=== PATIENT | female | born 2000 | race Two or more races ===

== ENCOUNTER 2024-11-17 03:39 | Emergency (ER) | payer OTHER, SELFPAY ==
[2024-11-17 03:44] VITALS: BP 137/84; PULSE 100; TEMP 36.7; O2SAT 99; BMI 36.3
--- NOTE | 2024-11-17 04:01 | ED_ITS ---
HPI HPI - General Adult General Chief complaint: GI Bleed Stated complaint: BLOOD IN STOOL Time Seen by Provider: 11/17/24 03:54 Source: patient Mode of arrival: walk-in Limitations: no limitations History of Present Illness HPI narrative: 24-year-old female presents because she saw some blood in her stool about 20 minutes ago. She has some discomfort in her rectal area. She has not been constipated and has no abdominal pain. No vomiting or fever. She has a history of IBS according to the patient. Related Data Home Medications ?Medication ?Instructions ?Recorded ?Confirmed dicyclomine 20 mg tablet 20 mg PO QID 11/17/24 11/17/24 norelgestromin 150 mcg-e.estradiol 1 patch transdermal QWEEK 11/17/24 11/17/24 35 mcg/24 hr weekly transderm patch Previous Rx's ?Medication ?Instructions ?Recorded amoxicillin 875 mg-potassium 1 tab PO BID #14 tabs 11/17/24 clavulanate 125 mg tablet Allergies Allergy/AdvReac Type Severity Reaction Status Date / Time No Known Drug Allergies Allergy Verified 11/17/24 03:50 Opioid HPI Opioid Management Most Recent Opioid Data: No Data to Display Review of Systems ROS Narrative A ten point review of systems is negative except as noted above. PFSH PFSH Social History Little interest or pleasure in doing things: not at all Feeling down, depressed, or hopeless: not at all Exam Narrative Exam Narrative: Nurses note and vital signs reviewed and patient is not hypoxic. General: The patient appears in no apparent distress. Patient is resting on cart. Skin: Warm, dry, no pallor noted. There is no rash noted. Head: Normocephalic, atraumatic Eye: Normal conjunctiva, no drainage Ears, Nose, Mouth, and Throat: oral mucosa is moist. Nares patent. Cardiovascular: Regular Rate and Rhythm Respiratory: Patient is in no distress, no accessory muscle use, lungs are clear to auscultation, no wheezing, rales or rhonchi Back: non-tender GI: Abdomen is soft and nontender. Perianal examination shows no external hemorrhoids. There is some brown stool present. At the 6 o'clock position she has a tender area that is not raised or open and there is no drainage including with palpation. Musculoskeletal: The patient has no evidence of calf tenderness, no pitting edema, symmetrical pulses noted bilaterally Neurological: A&O, normal speech Psychiatric: Cooperative Constitutional Vital Signs, click to edit/add: Last Vital Signs Temp 98.0 F 11/17/24 03:44 Pulse 100 H 11/17/24 03:44 Resp 18 11/17/24 03:44 BP 137/84 11/17/24 03:44 Pulse Ox 99 11/17/24 03:44 O2 Del Method Room Air 11/17/24 03:44 Course Vital Signs Vital signs: Vital Signs Temperature 98.0 F 11/17/24 03:44 Pulse Rate 100 H 11/17/24 03:44 Respiratory Rate 18 11/17/24 03:44 Blood Pressure 137/84 11/17/24 03:44 Pulse Oximetry 99 11/17/24 03:44 Oxygen Delivery Method Room Air 11/17/24 03:44 Temperature 98.0 F 11/17/24 03:44 Pulse Rate 100 H 11/17/24 03:44 Respiratory Rate 18 11/17/24 03:44 Blood Pressure 137/84 11/17/24 03:44 Pulse Oximetry 99 11/17/24 03:44 Oxygen Delivery Method Room Air 11/17/24 03:44 Medical Decision Making MDM Narrative Medical decision making narrative: Blood work including hemoglobin and white blood cell count are normal. She has a history of IBS and has a tender area approximately 2 cm from her anus at the 6 o'clock position. Cause is uncertain but this does not seem to be a fistula. She is being prescribed Augmentin and was given her first dose here and she will follow-up with her physicist nuclear. Treatment diagnosis and follow-up were discussed with the patient. Differential Diagnosis Differential Diagnosis: External hemorrhoid, internal hemorrhoid Lab Data Lab results reviewed: Yes I reviewed the patient's lab results Labs: Lab Results 11/17/24 Range/Units 04:10 WBC 9.5 (4.0-11.0) 10^3/uL RBC 4.67 (4.20-5.40) 10^6/uL Hgb 13.3 (12.0-16.0) g/dL Hct 38.7 (36.0-48.0) % MCV 82.9 (81.0-99.0) fL MCH 28.5 (26.7-34.0) pg MCHC 34.4 (29.9-35.2) g/dL RDW 12.2 (11.0-15.0) % Plt Count 369 (150-450) 10^3/uL MPV 9.4 L (9.5-13.5) fL Neut % (Auto) 47.7 (43.0-75.0) % Lymph % (Auto) 38.2 (20.5-60.0) % Lawrence % (Auto) 7.7 (1.7-12.0) % Eos % (Auto) 5.6 (0.9-7.0) % Baso % (Auto) 0.6 (0.2-2.0) % Neut # (Auto) 4.5 (1.4-6.5) 10^3/uL Lymph # (Auto) 3.6 (1.2-3.8) 10^3/uL Lawrence # (Auto) 0.7 (0.3-0.8) 10^3/uL Eos # (Auto) 0.5 (0.0-0.7) 10^3/uL Baso # (Auto) 0.1 (0.0-0.1) 10^3/uL Abs Immat Gran (auto) 0.02 (0.00-0.03) 10^3/uL Imm/Tot Granulo (auto) 0.2 (0.0-0.5) % Sodium 139 (136-145) mmol/L Potassium 3.6 (3.5-5.1) mmol/L Chloride 102 (98-107) mmol/L Carbon Dioxide 26.3 (21.0-32.0) mmol/L Anion Gap 14.3 BUN 8.0 (7.0-18.0) mg/dL Creatinine 0.76 (0.55-1.02) mg/dL Est GFR ( Amer) >60 (>=60 mL/min/1.73m^2) Est GFR (Non-Af Amer) >60 (>=60 mL/min/1.73m^2) BUN/Creatinine Ratio 10.5 Glucose 115 H (74-106) mg/dL Calcium 9.0 (8.5-10.1) mg/dL Discharge Plan Discharge Chief Complaint: GI Bleed Clinical Impression: Hematochezia Patient Disposition: Home, Self-Care Time of Disposition Decision: 04:42 Condition: Good Mode of Transportation: Private Vehicle Prescriptions / Home Meds: New amoxicillin-pot clavulanate 875-125 mg tablet 1 tab PO BID Qty: 14 0RF No Action dicyclomine 20 mg tablet 20 mg PO QID norelgestromin-ethin.estradiol 150-35 mcg/24 hr patch weekly 1 patch transdermal QWEEK Rx Instructions: apply once weekly for 3 weeks of a 4-week cycle Print Language: Kinyarwanda Instructions: Rectal Bleeding (ED) Additional Instructions: Follow-up with your physicist nuclear Referrals: Physician,Non-Staff, MD [Primary Care Provider] - 1 week
[2024-11-17 04:14] LABS: Basophils Absolute Auto 0.1 10^3/uL (0.0-0.1); Basophils Percent Auto 0.6 % (0.2-2.0); Eosinophils Absolute Auto 0.5 10^3/uL (0.0-0.7); Eosinophils Percent Auto 5.6 % (0.9-7.0); Hematocrit 38.7 % (36.0-48.0); Hemoglobin 13.3 g/dL (12.0-16.0); Immature Granulocytes Abs Auto 0.02 10^3/uL (0.00-0.03); Immature Granulocytes Pct Auto 0.2 % (0.0-0.5); Lymphocytes Absolute Auto 3.6 10^3/uL (1.2-3.8); Lymphocytes Percent Auto 38.2 % (20.5-60.0); Mean Corpuscular HGB Conc 34.4 g/dL (29.9-35.2); Mean Corpuscular Hemoglobin 28.5 pg (26.7-34.0); Mean Corpuscular Volume 82.9 fL (81.0-99.0); Mean Platelet Volume 9.4 fL (9.5-13.5); Monocytes Absolute Auto 0.7 10^3/uL (0.3-0.8); Monocytes Percent Auto 7.7 % (1.7-12.0); Neutrophils Absolute Auto 4.5 10^3/uL (1.4-6.5); Neutrophils Percent Auto 47.7 % (43.0-75.0); Platelet Count 369 10^3/uL (150-450); Red Blood Count 4.67 10^6/uL (4.20-5.40); Red Cell Distribution Width 12.2 % (11.0-15.0); White Blood Count 9.5 10^3/uL (4.0-11.0)
[2024-11-17 04:30] LABS: Anion Gap 14.3; BUN Creatinine Ratio 10.5; Carbon Dioxide 26.3 mmol/L (21.0-32.0); Chloride 102 mmol/L (98-107); Estimated GFR (African America >60 (>=60 mL/min/1.73m^2); Estimated GFR (Non-African Ame >60 (>=60 mL/min/1.73m^2); Glucose 115 mg/dL (74-106); Potassium 3.6 mmol/L (3.5-5.1); Sodium 139 mmol/L (136-145)
[2024-11-17] MEDS: AMOXICILLIN/POT CLAV 875-125 MG TABLET 1 TAB PO (04:57)
[2024-11-17 05:07] VITALS: BP 139/79; PULSE 98; O2SAT 99
== END 2024-11-17 05:07 | disposition home or self-care (01) ==
PROVIDERS: Emergency Provider Emergency Medicine
DX: K92.1 Melena (principal)
CPT/HCPCS: 36415; 80048; 85025; 99283